=== PATIENT | female | born 1940 | race African-American/Black ===

== ENCOUNTER 2016-10-28 20:47 | Inpatient (IN) | payer MEDICARE, MEDICAID ==
[~2016-10-28] VITALS: Ht 170.2 cm; Wt 142.0 kg
[~2016-10-28 20:47] MED LIST: AMLO10TA4 PO; CLON0.2T PO; EXEN2VIA SQ; GABA-290 PO; METF500T4 PO; ZOLP5TAB8 PO
[2016-10-28] MEDS ORDERED: NON FORMULARY PATIENT HOME MED EA XX SCH (21:45)
[2016-10-28] MEDS: LACTULOSE 20G/30ML UDC PO SCH ×2 (21:45→23:21)
[2016-10-28] MEDS: ZOLPIDEM TARTRATE 5MG TABLET PO SCH (21:45)
[2016-10-28] MEDS ORDERED: DEXTROSE 50% WATER 50ML SYRINGE IV PRN (21:45)
[2016-10-28 22:00] VITALS: BP 104/56
[2016-10-28 22:58] VITALS: BP 104/56
[2016-10-28] MEDS ORDERED: ALBUTEROL (0.083%) 2.5MG/3ML NEB HHN PRN (23:15)
[2016-10-28] MEDS: GABAPENTIN 100MG CAPSULE PO SCH (23:19)
[2016-10-28] MEDS: APIXABAN 2.5 MG TABLET PO SCH (23:20)
[2016-10-28] MEDS: DOCUSATE SODIUM 100MG CAPSULE PO SCH (23:20)
[2016-10-28] MEDS: SUCRALFATE 1G TABLET PO SCH (23:20)
[2016-10-28] MEDS: METFORMIN HCL 500MG TABLET PO SCH (23:20)
[2016-10-28] MEDS: HYDROCODONE/ACETAMINOPHEN 10/325MG TABLET PO PRN (23:21)
[2016-10-29 00:05] LABS: HEMATOCRIT 34.7 % (36.0-48.0); HEMOGLOBIN 11.1 g/dL (12.0-16.0); MEAN CORPUSCULAR HEMOGLOBIN 26.3 pg (28.0-32.0); MEAN CORPUSCULAR VOLUME 82.5 fL (81.0-99.0); PLATELET 335 x1000/uL (130-400); RED BLOOD CELL COUNT 4.21 mill/uL (4.2-5.4); RED CELL DISTRIBUTION WIDTH 16.4 % (11.6-14.6)
[2016-10-29] MEDS: DILTIAZEM HCL 90MG TABLET PO SCH ×4 (00:41→17:27)
[2016-10-29 00:48] LABS: CARBON DIOXIDE 30 mEq/L (21-32); CHLORIDE 97 mEq/L (98-107)
[2016-10-29] MEDS: GABAPENTIN 100MG CAPSULE PO SCH ×3 (06:44→21:04)
[2016-10-29] MEDS: BLOOD SUGAR DIAGNOSTIC STRIP TEST SCH ×4 (06:45→21:09)
[2016-10-29] MEDS: SUCRALFATE 1G TABLET PO SCH ×4 (06:45→21:04)
[2016-10-29] MEDS: HYDROCODONE/ACETAMINOPHEN 10/325MG TABLET PO PRN ×2 (06:48→10:25)
[2016-10-29] MEDS: INSULIN LISPRO 100 UNITS/ML SUBCUT SCH ×4 (06:50→21:00)
[2016-10-29 08:00] VITALS: BP 141/63
[2016-10-29] MEDS: HYDRALAZINE HCL 50MG TABLET PO SCH ×4 (08:12→21:00)
[2016-10-29] MEDS: POTASSIUM CHLORIDE 20MEQ TABLET SR PO SCH (08:12)
[2016-10-29] MEDS: FERROUS SULFATE 325MG TABLET PO SCH (08:12)
[2016-10-29] MEDS: APIXABAN 2.5 MG TABLET PO SCH (08:13)
[2016-10-29] MEDS: AMLODIPINE 10MG TABLET PO SCH (08:13)
[2016-10-29] MEDS: FUROSEMIDE 40MG TABLET PO SCH (08:13)
[2016-10-29] MEDS: LACTULOSE 20G/30ML UDC PO SCH ×3 (08:14→16:58)
[2016-10-29] MEDS: LOSARTAN POTASSIUM 100 MG TABLET PO SCH (08:15)
[2016-10-29] MEDS: DOCUSATE SODIUM 100MG CAPSULE PO SCH ×2 (08:19→17:26)
[2016-10-29] MEDS: METFORMIN HCL 500MG TABLET PO SCH ×4 (08:19→21:04)
[2016-10-29] MEDS: ONDANSETRON HCL 4MG TABLET PO PRN (09:54)
[2016-10-29 10:20] VITALS: BP 120/60
[2016-10-29 11:50] VITALS: BP 113/52
[2016-10-29] MEDS ORDERED: IPRATROPIUM/ALBUTEROL 0.5-3(2.5)MG/3ML NEB HHN PRN (12:00)
[2016-10-29 13:50] VITALS: BP 119/54
[2016-10-29] MEDS: MAGNESIUM/ALUMINUM HYDROXIDE/SIMETHICONE 30ML UDC PO PRN (14:04)
[2016-10-29] MEDS: IPRATROPIUM/ALBUTEROL 0.5-3(2.5)MG/3ML NEB HHN SCH ×2 (16:08→20:08)
[2016-10-29 17:00] VITALS: BP 119/54
[2016-10-29] MEDS: APIXABAN 5 MG TABLET PO SCH (17:26)
[2016-10-29 20:00] VITALS: BP 131/56
[2016-10-29] MEDS: ZOLPIDEM TARTRATE 5MG TABLET PO SCH (21:04)
[2016-10-30] MEDS: IPRATROPIUM/ALBUTEROL 0.5-3(2.5)MG/3ML NEB HHN SCH ×4 (01:21→20:25)
[2016-10-30] MEDS: HYDROCODONE/ACETAMINOPHEN 10/325MG TABLET PO PRN ×4 (03:24→23:55)
[2016-10-30] MEDS: DILTIAZEM HCL 90MG TABLET PO SCH ×4 (06:00→19:04)
[2016-10-30] MEDS: GABAPENTIN 100MG CAPSULE PO SCH ×3 (06:14→21:03)
[2016-10-30] MEDS: SUCRALFATE 1G TABLET PO SCH ×4 (06:14→20:59)
[2016-10-30] MEDS: BLOOD SUGAR DIAGNOSTIC STRIP TEST SCH ×4 (06:15→20:59)
[2016-10-30] MEDS: INSULIN LISPRO 100 UNITS/ML SUBCUT SCH ×4 (06:15→21:00)
[2016-10-30 07:08] LABS: EOSINOPHILS % 2.1 % (0.0-5.0); HEMOGLOBIN. 10.6 g/dL (12.0-16.0); LYMPHOCYTES % 17.8 % (20.0-50.0); MEAN CORPUSCULAR HEMOGLOBIN 26.3 pg (28.0-32.0); MEAN CORPUSCULAR VOLUME 84.6 fL (81.0-99.0); MEAN PLATELET VOLUME 8.8 fl (7.4-10.4); MONOCYTES % 7.5 % (2.0-8.0); NEUTROPHILS % 71.6 % (40.0-76.0); PLATELET 283 x1000/uL (130-400); RED BLOOD CELL COUNT 4.02 mill/uL (4.2-5.4)
[2016-10-30 07:31] VITALS: BP 102/37
[2016-10-30] MEDS: HYDRALAZINE HCL 50MG TABLET PO SCH (09:00)
[2016-10-30] MEDS: LACTULOSE 20G/30ML UDC PO SCH ×2 (09:00→17:00)
[2016-10-30] MEDS: LOSARTAN POTASSIUM 100 MG TABLET PO SCH (09:00)
[2016-10-30] MEDS: AMLODIPINE 10MG TABLET PO SCH (09:00)
[2016-10-30] MEDS: FERROUS SULFATE 325MG TABLET PO SCH (09:33)
[2016-10-30] MEDS: FUROSEMIDE 40MG TABLET PO SCH (09:33)
[2016-10-30] MEDS: APIXABAN 5 MG TABLET PO SCH ×2 (09:33→17:09)
[2016-10-30] MEDS: METFORMIN HCL 500MG TABLET PO SCH ×4 (09:33→20:59)
[2016-10-30] MEDS: DOCUSATE SODIUM 100MG CAPSULE PO SCH ×2 (09:33→17:08)
[2016-10-30] MEDS: POTASSIUM CHLORIDE 20MEQ TABLET SR PO SCH (09:35)
[2016-10-30] MEDS: AMLODIPINE 5MG TABLET PO SCH (19:04)
[2016-10-30 20:00] VITALS: BP 137/54
[2016-10-30] MEDS: ZOLPIDEM TARTRATE 5MG TABLET PO SCH (20:59)
[2016-10-31] MEDS: DILTIAZEM HCL 90MG TABLET PO SCH ×5 (00:56→23:45)
[2016-10-31] MEDS: IPRATROPIUM/ALBUTEROL 0.5-3(2.5)MG/3ML NEB HHN SCH ×4 (01:54→20:41)
[2016-10-31] MEDS: GABAPENTIN 100MG CAPSULE PO SCH ×3 (05:44→22:04)
[2016-10-31] MEDS: AMLODIPINE 5MG TABLET PO SCH ×2 (05:44→17:31)
[2016-10-31] MEDS: SUCRALFATE 1G TABLET PO SCH ×4 (05:45→21:05)
[2016-10-31] MEDS: BLOOD SUGAR DIAGNOSTIC STRIP TEST SCH ×4 (05:52→21:10)
[2016-10-31] MEDS: INSULIN LISPRO 100 UNITS/ML SUBCUT SCH ×4 (05:53→21:00)
[2016-10-31 06:44] LABS: CLARITY URINE CLEAR (CLEAR); COLOR URINE YELLOW (YELLOW); GLUCOSE URINE NEGATIVE (NEGATIVE); KETONES URINE NEGATIVE (NEGATIVE); LEUKOCYTE ESTERASE URINE 1+ (NEGATIVE); NITRITE URINE POSITIVE (NEGATIVE); OCCULT BLOOD URINE NEGATIVE (NEGATIVE); PH URINE 5.5 (4.5-8.0); PROTEIN URINE NEGATIVE (NEGATIVE); SPECIFIC GRAVITY URINE 1.018 (1.005-1.030)
[2016-10-31 08:00] VITALS: BP 129/53
[2016-10-31] MEDS: LACTULOSE 20G/30ML UDC PO SCH ×2 (08:01→17:00)
[2016-10-31] MEDS: HYDROCODONE/ACETAMINOPHEN 10/325MG TABLET PO PRN ×3 (08:05→21:06)
[2016-10-31] MEDS: ONDANSETRON HCL 4MG TABLET PO PRN ×2 (08:05→16:02)
[2016-10-31] MEDS: POTASSIUM CHLORIDE 20MEQ TABLET SR PO SCH (08:06)
[2016-10-31] MEDS: LOSARTAN POTASSIUM 100 MG TABLET PO SCH (08:06)
[2016-10-31] MEDS: DOCUSATE SODIUM 100MG CAPSULE PO SCH ×2 (08:06→17:31)
[2016-10-31] MEDS: APIXABAN 5 MG TABLET PO SCH ×2 (08:07→17:32)
[2016-10-31] MEDS: FERROUS SULFATE 325MG TABLET PO SCH (08:07)
[2016-10-31] MEDS: FUROSEMIDE 40MG TABLET PO SCH (08:07)
[2016-10-31] MEDS: METFORMIN HCL 500MG TABLET PO SCH ×4 (08:07→21:09)
[2016-10-31 20:00] VITALS: BP 126/49
[2016-10-31] MEDS: OMEPRAZOLE 20MG CAPSULE EXTENDED RELEASE PO SCH (21:05)
[2016-10-31] MEDS: ZOLPIDEM TARTRATE 5MG TABLET PO SCH (21:05)
[2016-11-01] MEDS: IPRATROPIUM/ALBUTEROL 0.5-3(2.5)MG/3ML NEB HHN SCH ×4 (02:51→20:51)
[2016-11-01] MEDS: HYDROCODONE/ACETAMINOPHEN 10/325MG TABLET PO PRN ×4 (03:12→20:44)
[2016-11-01] MEDS: GABAPENTIN 100MG CAPSULE PO SCH ×3 (05:45→22:05)
[2016-11-01] MEDS: DILTIAZEM HCL 90MG TABLET PO SCH ×3 (05:46→18:00)
[2016-11-01] MEDS: AMLODIPINE 5MG TABLET PO SCH ×2 (05:46→18:00)
[2016-11-01] MEDS: SUCRALFATE 1G TABLET PO SCH ×4 (05:46→20:43)
[2016-11-01 05:51] LABS: BASOPHILS % 1.1 % (0.0-2.0); EOSINOPHILS % 3.5 % (0.0-5.0); HEMATOCRIT. 33.2 % (36.0-48.0); HEMOGLOBIN. 10.5 g/dL (12.0-16.0); LYMPHOCYTES % 22.8 % (20.0-50.0); MEAN CORPUSCULAR HEMOGLOBIN 26.6 pg (28.0-32.0); MEAN PLATELET VOLUME 8.7 fl (7.4-10.4); MONOCYTES % 7.2 % (2.0-8.0); NEUTROPHILS % 65.4 % (40.0-76.0); PLATELET 321 x1000/uL (130-400); RED BLOOD CELL COUNT 3.96 mill/uL (4.2-5.4); RED CELL DISTRIBUTION WIDTH 16.9 % (11.6-14.6)
[2016-11-01 06:00] VITALS: BP 107/52
[2016-11-01 06:10] LABS: CARBON DIOXIDE 30 mEq/L (21-32); CHLORIDE 103 mEq/L (98-107)
[2016-11-01] MEDS: BLOOD SUGAR DIAGNOSTIC STRIP TEST SCH ×4 (06:30→20:45)
[2016-11-01 07:00] VITALS: BP 119/44
[2016-11-01] MEDS: LOSARTAN POTASSIUM 100 MG TABLET PO SCH (08:27)
[2016-11-01] MEDS: OMEPRAZOLE 20MG CAPSULE EXTENDED RELEASE PO SCH ×2 (08:28→20:43)
[2016-11-01] MEDS: APIXABAN 5 MG TABLET PO SCH ×2 (08:28→16:50)
[2016-11-01] MEDS: POTASSIUM CHLORIDE 20MEQ TABLET SR PO SCH (08:28)
[2016-11-01] MEDS: METFORMIN HCL 500MG TABLET PO SCH ×4 (08:28→20:43)
[2016-11-01] MEDS: FUROSEMIDE 40MG TABLET PO SCH (08:28)
[2016-11-01] MEDS: FERROUS SULFATE 325MG TABLET PO SCH (08:28)
[2016-11-01] MEDS: DOCUSATE SODIUM 100MG CAPSULE PO SCH ×2 (08:28→16:50)
[2016-11-01] MEDS: LACTULOSE 20G/30ML UDC PO SCH ×2 (08:29→17:00)
[2016-11-01] MEDS ORDERED: ERGOCALCIFEROL 50000UNITS CAPSULE PO SCH (09:00)
[2016-11-01] MEDS ORDERED: CHOLECALCIFEROL (D3) 1000 UNIT TABLET PO SCH (09:00)
[2016-11-01 11:20] VITALS: BP 145/54
[2016-11-01] MEDS: INSULIN LISPRO 100 UNITS/ML SUBCUT SCH ×3 (11:26→20:45)
[2016-11-01 20:00] VITALS: BP 121/55
[2016-11-01] MEDS: ZOLPIDEM TARTRATE 5MG TABLET PO SCH (22:05)
[2016-11-02] MEDS: DILTIAZEM HCL 90MG TABLET PO SCH ×4 (00:38→17:24)
[2016-11-02] MEDS: IPRATROPIUM/ALBUTEROL 0.5-3(2.5)MG/3ML NEB HHN SCH ×4 (03:25→21:09)
[2016-11-02] MEDS: HYDROCODONE/ACETAMINOPHEN 10/325MG TABLET PO PRN ×3 (03:47→18:37)
[2016-11-02] MEDS: BLOOD SUGAR DIAGNOSTIC STRIP TEST SCH ×4 (05:48→21:24)
[2016-11-02] MEDS: GABAPENTIN 100MG CAPSULE PO SCH ×3 (05:48→21:20)
[2016-11-02] MEDS: INSULIN LISPRO 100 UNITS/ML SUBCUT SCH ×4 (05:49→21:00)
[2016-11-02] MEDS: AMLODIPINE 5MG TABLET PO SCH ×2 (05:49→17:24)
[2016-11-02] MEDS: SUCRALFATE 1G TABLET PO SCH ×4 (06:30→21:21)
[2016-11-02 08:00] VITALS: BP 130/98
[2016-11-02] MEDS: FUROSEMIDE 40MG TABLET PO SCH (08:53)
[2016-11-02] MEDS: FERROUS SULFATE 325MG TABLET PO SCH (08:53)
[2016-11-02] MEDS: POTASSIUM CHLORIDE 20MEQ TABLET SR PO SCH (08:53)
[2016-11-02] MEDS: METFORMIN HCL 500MG TABLET PO SCH ×4 (08:53→21:20)
[2016-11-02] MEDS: OMEPRAZOLE 20MG CAPSULE EXTENDED RELEASE PO SCH (08:53)
[2016-11-02] MEDS: APIXABAN 5 MG TABLET PO SCH ×2 (08:53→16:33)
[2016-11-02] MEDS: DOCUSATE SODIUM 100MG CAPSULE PO SCH ×2 (08:53→16:33)
[2016-11-02] MEDS: LOSARTAN POTASSIUM 100 MG TABLET PO SCH (08:53)
[2016-11-02] MEDS: LACTULOSE 20G/30ML UDC PO SCH ×2 (08:53→16:34)
[2016-11-02] MEDS: ONDANSETRON HCL 4MG TABLET PO PRN (11:07)
[2016-11-02 20:00] VITALS: BP 121/52
[2016-11-02] MEDS: ZOLPIDEM TARTRATE 5MG TABLET PO SCH (21:21)
[2016-11-03] MEDS: HYDROCODONE/ACETAMINOPHEN 10/325MG TABLET PO PRN ×3 (01:41→20:17)
[2016-11-03] MEDS: DILTIAZEM HCL 90MG TABLET PO SCH ×5 (01:41→23:21)
[2016-11-03] MEDS: IPRATROPIUM/ALBUTEROL 0.5-3(2.5)MG/3ML NEB HHN SCH ×4 (02:17→21:06)
[2016-11-03] MEDS: GABAPENTIN 100MG CAPSULE PO SCH ×3 (06:17→21:20)
[2016-11-03] MEDS: AMLODIPINE 5MG TABLET PO SCH ×2 (06:17→17:18)
[2016-11-03] MEDS: SUCRALFATE 1G TABLET PO SCH ×4 (06:18→20:17)
[2016-11-03] MEDS: BLOOD SUGAR DIAGNOSTIC STRIP TEST SCH ×4 (06:18→20:18)
[2016-11-03 08:00] VITALS: BP 150/57
[2016-11-03] MEDS: LACTULOSE 20G/30ML UDC PO SCH ×2 (08:24→17:00)
[2016-11-03] MEDS: INSULIN LISPRO 100 UNITS/ML SUBCUT SCH ×4 (08:27→20:18)
[2016-11-03] MEDS: CEPHALEXIN 500MG CAPSULE PO SCH ×3 (08:27→17:16)
[2016-11-03] MEDS: FAMOTIDINE 20MG TABLET PO SCH (08:27)
[2016-11-03] MEDS: METFORMIN HCL 500MG TABLET PO SCH ×4 (08:27→20:17)
[2016-11-03] MEDS: FERROUS SULFATE 325MG TABLET PO SCH (08:28)
[2016-11-03] MEDS: APIXABAN 5 MG TABLET PO SCH ×2 (08:28→17:16)
[2016-11-03] MEDS: DOCUSATE SODIUM 100MG CAPSULE PO SCH ×2 (08:28→17:16)
[2016-11-03] MEDS: POTASSIUM CHLORIDE 20MEQ TABLET SR PO SCH (08:28)
[2016-11-03] MEDS: FUROSEMIDE 40MG TABLET PO SCH (08:28)
[2016-11-03] MEDS: LOSARTAN POTASSIUM 100 MG TABLET PO SCH (08:28)
[2016-11-03 20:00] VITALS: BP 152/68
[2016-11-03] MEDS: ZOLPIDEM TARTRATE 5MG TABLET PO PRN (21:20)
[2016-11-04] MEDS: IPRATROPIUM/ALBUTEROL 0.5-3(2.5)MG/3ML NEB HHN SCH ×4 (02:12→20:08)
[2016-11-04] MEDS: HYDROCODONE/ACETAMINOPHEN 10/325MG TABLET PO PRN ×4 (04:09→21:41)
[2016-11-04] MEDS: DILTIAZEM HCL 90MG TABLET PO SCH ×3 (05:09→17:18)
[2016-11-04] MEDS: AMLODIPINE 5MG TABLET PO SCH ×2 (05:10→17:15)
[2016-11-04] MEDS: GABAPENTIN 100MG CAPSULE PO SCH (05:36)
[2016-11-04] MEDS: SUCRALFATE 1G TABLET PO SCH ×4 (05:36→21:39)
[2016-11-04] MEDS: BLOOD SUGAR DIAGNOSTIC STRIP TEST SCH ×4 (05:37→21:00)
[2016-11-04 06:58] LABS: EOSINOPHILS % 3.6 % (0.0-5.0); HEMATOCRIT. 34.4 % (36.0-48.0); HEMOGLOBIN. 11.1 g/dL (12.0-16.0); LYMPHOCYTES % 18.2 % (20.0-50.0); MEAN CORPUSCULAR HEMOGLOBIN 26.9 pg (28.0-32.0); MEAN CORPUSCULAR VOLUME 83.3 fL (81.0-99.0); MONOCYTES % 8.7 % (2.0-8.0); NEUTROPHILS % 68.5 % (40.0-76.0); PLATELET 352 x1000/uL (130-400); RED BLOOD CELL COUNT 4.13 mill/uL (4.2-5.4); RED CELL DISTRIBUTION WIDTH 16.9 % (11.6-14.6)
[2016-11-04] MEDS: INSULIN LISPRO 100 UNITS/ML SUBCUT SCH ×4 (07:00→21:00)
[2016-11-04 07:35] VITALS: BP 140/59
[2016-11-04 07:57] LABS: CARBON DIOXIDE 30 mEq/L (21-32); CHLORIDE 99 mEq/L (98-107)
[2016-11-04] MEDS: POTASSIUM CHLORIDE 20MEQ TABLET SR PO SCH (08:58)
[2016-11-04] MEDS: FAMOTIDINE 20MG TABLET PO SCH (08:59)
[2016-11-04] MEDS: METFORMIN HCL 500MG TABLET PO SCH ×4 (08:59→21:39)
[2016-11-04] MEDS: FERROUS SULFATE 325MG TABLET PO SCH (09:00)
[2016-11-04] MEDS: LOSARTAN POTASSIUM 100 MG TABLET PO SCH (09:00)
[2016-11-04] MEDS: LACTULOSE 20G/30ML UDC PO SCH ×2 (09:00→17:00)
[2016-11-04] MEDS: APIXABAN 5 MG TABLET PO SCH ×2 (09:00→17:09)
[2016-11-04] MEDS: CEPHALEXIN 500MG CAPSULE PO SCH ×3 (09:00→17:09)
[2016-11-04] MEDS ORDERED: ERGOCALCIFEROL 50000UNITS CAPSULE PO SCH (09:00)
[2016-11-04] MEDS: DOCUSATE SODIUM 100MG CAPSULE PO SCH ×2 (09:00→17:09)
[2016-11-04] MEDS: FUROSEMIDE 40MG TABLET PO SCH (09:00)
[2016-11-04] MEDS ORDERED: BISACODYL 10MG SUPP PR PRN (13:00)
[2016-11-04] MEDS: GABAPENTIN 300MG CAPSULE PO SCH ×2 (13:10→21:39)
[2016-11-04 19:00] VITALS: BP 117/52
[2016-11-05] MEDS: ZOLPIDEM TARTRATE 5MG TABLET PO PRN (00:15)
[2016-11-05] MEDS: IPRATROPIUM/ALBUTEROL 0.5-3(2.5)MG/3ML NEB HHN SCH ×2 (02:06→07:26)
[2016-11-05] MEDS: HYDROCODONE/ACETAMINOPHEN 10/325MG TABLET PO PRN ×2 (05:00→09:36)
[2016-11-05] MEDS: DILTIAZEM HCL 90MG TABLET PO SCH ×4 (06:00→18:00)
[2016-11-05] MEDS: AMLODIPINE 5MG TABLET PO SCH ×2 (06:00→18:00)
[2016-11-05] MEDS: SUCRALFATE 1G TABLET PO SCH ×3 (06:05→18:01)
[2016-11-05] MEDS: BLOOD SUGAR DIAGNOSTIC STRIP TEST SCH ×3 (06:05→17:00)
[2016-11-05] MEDS: GABAPENTIN 300MG CAPSULE PO SCH ×2 (06:05→15:04)
[2016-11-05] MEDS: INSULIN LISPRO 100 UNITS/ML SUBCUT SCH ×3 (06:47→17:00)
[2016-11-05 08:00] VITALS: BP 104/42
[2016-11-05] MEDS: LACTULOSE 20G/30ML UDC PO SCH ×2 (09:00→17:00)
[2016-11-05] MEDS: LOSARTAN POTASSIUM 100 MG TABLET PO SCH (09:00)
[2016-11-05] MEDS: METFORMIN HCL 500MG TABLET PO SCH ×3 (09:29→18:01)
[2016-11-05] MEDS: DOCUSATE SODIUM 100MG CAPSULE PO SCH ×2 (09:30→17:00)
[2016-11-05] MEDS: FAMOTIDINE 20MG TABLET PO SCH (09:30)
[2016-11-05] MEDS: APIXABAN 5 MG TABLET PO SCH ×2 (09:30→18:01)
[2016-11-05] MEDS: FERROUS SULFATE 325MG TABLET PO SCH (09:30)
[2016-11-05] MEDS: POTASSIUM CHLORIDE 20MEQ TABLET SR PO SCH (09:30)
[2016-11-05] MEDS: FUROSEMIDE 40MG TABLET PO SCH (09:30)
[2016-11-05] MEDS: CEPHALEXIN 500MG CAPSULE PO SCH ×3 (09:30→18:01)
[2016-11-05] MEDS: ONDANSETRON HCL 4MG TABLET PO PRN (09:36)
[2016-11-05] MEDS: MAGNESIUM/ALUMINUM HYDROXIDE/SIMETHICONE 30ML UDC PO PRN (11:22)
[2016-11-05 14:02] VITALS: BP 104/42
== END 2016-11-05 18:35 | disposition home health service (06) | DRG 65 ==
PROVIDERS: ADMIT Psychiatry & Neurology Neurology; ATTEND Internal Medicine Critical Care Medicine
DX: I63.9 Cerebral infarction, unspecified (principal); Z68.42 Body mass index [BMI] 45.0-49.9, adult; I48.2 Chronic atrial fibrillation; I11.0 Hypertensive heart disease with heart failure; E11.42 Type 2 diabetes mellitus with diabetic polyneuropathy; J44.9 Chronic obstructive pulmonary disease, unspecified; I50.20 Unspecified systolic (congestive) heart failure; R47.01 Aphasia; E78.5 Hyperlipidemia, unspecified; M79.7 Fibromyalgia; M48.06 Spinal stenosis, lumbar region; M16.0 Bilateral primary osteoarthritis of hip; G47.33 Obstructive sleep apnea (adult) (pediatric); E66.01 Morbid (severe) obesity due to excess calories; K59.00 Constipation, unspecified; M48.8X7 Other specified spondylopathies, lumbosacral region; D64.9 Anemia, unspecified; G47.30 Sleep apnea, unspecified; R26.89 Other abnormalities of gait and mobility; Z96.653 Presence of artificial knee joint, bilateral; M51.17 Intervertebral disc disorders with radiculopathy, lumbosacral region; F06.31 Mood disorder due to known physiological condition with depressive features; Z87.891 Personal history of nicotine dependence; Z79.899 Other long term (current) drug therapy; Z98.1 Arthrodesis status
CPT/HCPCS: 36415; 80048; 81001; 82962; 83735; 85025; 85027; 87077; 87086; 87186; 92523; 93970; 94640; 94664; 97110; 97116; 97163; 97167; 97530; 97532; 97535; J7611; J7620; Q0162